=== PATIENT | female | born 1935 | race Caucasian/White ===

== ENCOUNTER 2018-03-13 08:47 | Observation (INO) | payer MEDICARE, OTHER ==
[2018-03-13 10:20] LABS: ADD MAN DIFF? NO
[2018-03-13 10:25] LABS: BASOPHILS % 0.8 % (0.0-2.0); EOSINOPHILS % 0.8 % (0.0-7.0); HEMATOCRIT 37.7 % (37.0-47.0); LYMPHOCYTES # 1.2 10^3/ul (0.8-2.9); LYMPHOCYTES % 22.1 % (15.0-51.0); MEAN CORPUSCULAR HEMOGLOBIN 32.2 pg (29.0-33.0); MEAN CORPUSCULAR HGB CONC 34.5 g/dl (32.0-37.0); MEAN CORPUSCULAR VOLUME 93.3 fl (82.0-101.0); MEAN PLATELET VOLUME 11.8 fl (7.4-10.4); MONOCYTE # 0.3 10^3/ul (0.3-0.9); MONOCYTES % 5.7 % (0.0-11.0); NEUTROPHIL # 3.6 10^3/ul (1.6-7.5); NEUTROPHILS % 67.6 % (39.0-77.0); PLATELET COUNT 124 10^3/UL (140-415); RED BLOOD COUNT 4.04 10^6/ul (4.20-5.40); RED CELL DISTRIBUTION WIDTH 13.2 % (11.5-14.5)
[2018-03-13 10:25] LABS: WHITE BLOOD COUNT 5.3 10^3/ul (4.8-10.8)
[2018-03-13] MEDS: ASPIRIN 325 MG TAB PO (10:42)
[2018-03-13 10:44] LABS: INR 0.95; PROTIME 12.8 Sec (11.9-14.9)
[2018-03-13 10:45] LABS: PARTIAL THROMBOPLASTIN TIME 29.3 Sec (25.0-35.0)
[2018-03-13 10:47] LABS: ALANINE AMINOTRANSFERASE 18 IU/L (13-69); ALBUMIN 4.2 g/dl (3.3-4.9); ALKALINE PHOSPHATASE 51 IU/L (42-121); ANION GAP 12 (8-16); ASPARTATE AMINO TRANSFERASE 23 IU/L (15-46); BILIRUBIN,INDIRECT 0.2 mg/dl (0-1.1); BILIRUBIN,TOTAL 0.2 mg/dl (0.2-1.3); BLOOD UREA NITROGEN 15 mg/dl (7-20); CALCIUM 8.4 mg/dl (8.4-10.2); CARBON DIOXIDE 24 mmol/L (21-31); CHLORIDE 108 mmol/L (97-110); CREATININE 0.65 mg/dl (0.44-1.00); GLUCOSE 144 mg/dl (70-220); POTASSIUM 4.2 mmol/L (3.5-5.1); SODIUM 140 mmol/L (135-144)
[2018-03-13] MEDS: NITROGLYCERIN 2% 1 GM OINT PKT TD (10:49)
[2018-03-13 10:58] LABS: TROPONIN-I < 0.010 ng/ml (0.000-0.120)
[2018-03-13] MEDS ORDERED: ACETAMINOPHEN 325 MG TAB PO ×2 (13:00→13:30)
[2018-03-13] MEDS ORDERED: ONDANSETRON 4 MG INJ IV ×2 (13:00→13:30)
[2018-03-13] MEDS ORDERED: NITROGLYCERIN (SL) 0.4 MG TAB SL (13:30)
[2018-03-13] MEDS ORDERED: DOCUSATE SODIUM 100 MG CAP PO (13:30)
[2018-03-13] MEDS ORDERED: MAGNESIUM HYDROXIDE 30ML CUP PO (13:30)
[2018-03-13] MEDS ORDERED: NACL 0.9% 3 ML SYG IV (13:30)
[2018-03-13 15:13] LABS: CREATINE KINASE 35 IU/L (23-200)
[2018-03-13 15:26] LABS: CK-MB 0.35 ng/ml (0.0-2.4); TROPONIN-I < 0.010 ng/ml (0.000-0.120)
[2018-03-13 19:22] LABS: CREATINE KINASE 33 IU/L (23-200)
[2018-03-13 19:35] LABS: CK-MB 0.33 ng/ml (0.0-2.4); TROPONIN-I < 0.010 ng/ml (0.000-0.120)
[2018-03-13] MEDS: ATORVASTATIN 10 MG TAB PO (21:24)
[2018-03-14] MEDS: PANTOPRAZOLE (EC) 40 MG TAB PO (05:07)
[2018-03-14] MEDS: LEVOTHYROXINE 75 MCG TAB PO (05:07)
[2018-03-14 07:38] LABS: ADD MAN DIFF? NO
[2018-03-14 07:50] LABS: WHITE BLOOD COUNT 6.2 10^3/ul (4.8-10.8)
[2018-03-14 07:50] LABS: BASOPHILS % 0.3 % (0.0-2.0); EOSINOPHILS # 0.1 10^3/ul (0.0-0.5); EOSINOPHILS % 1.5 % (0.0-7.0); HEMATOCRIT 35.4 % (37.0-47.0); HEMOGLOBIN 11.9 g/dl (12.0-16.0); LYMPHOCYTES # 1.4 10^3/ul (0.8-2.9); MEAN CORPUSCULAR HEMOGLOBIN 31.4 pg (29.0-33.0); MEAN CORPUSCULAR HGB CONC 33.6 g/dl (32.0-37.0); MEAN CORPUSCULAR VOLUME 93.4 fl (82.0-101.0); MEAN PLATELET VOLUME 11.9 fl (7.4-10.4); MONOCYTE # 0.4 10^3/ul (0.3-0.9); MONOCYTES % 6.8 % (0.0-11.0); NEUTROPHIL # 4.2 10^3/ul (1.6-7.5); NEUTROPHILS % 68.6 % (39.0-77.0); PLATELET COUNT 112 10^3/UL (140-415); RED BLOOD COUNT 3.79 10^6/ul (4.20-5.40); RED CELL DISTRIBUTION WIDTH 13.1 % (11.5-14.5)
[2018-03-14 08:05] LABS: CHOLESTEROL 142 mg/dl (100-200)
[2018-03-14 08:05] LABS: CHOL/HDL RATIO 3.9 RATIO; HDL CHOLESTEROL 36 mg/dl (33-92); LDL CHOLESTEROL,CALCULATED 72 mg/dl; TRIGLYCERIDES 168 mg/dl (0-149)
[2018-03-14 08:15] LABS: ALBUMIN 3.7 g/dl (3.3-4.9); ANION GAP 10 (8-16); BLOOD UREA NITROGEN 11 mg/dl (7-20); CALCIUM 8.2 mg/dl (8.4-10.2); CARBON DIOXIDE 25 mmol/L (21-31); CHLORIDE 108 mmol/L (97-110); CREATININE 0.61 mg/dl (0.44-1.00); GLUCOSE 128 mg/dl (70-220); MAGNESIUM 2.1 mg/dl (1.7-2.5); PHOSPHORUS 3.8 mg/dl (2.5-4.9); POTASSIUM 3.9 mmol/L (3.5-5.1); SODIUM 139 mmol/L (135-144)
[2018-03-14] MEDS: FUROSEMIDE 20 MG TAB PO (08:37)
[2018-03-14] MEDS: LOSARTAN 50 MG TAB PO (08:37)
[2018-03-14] MEDS: METOPROLOL (XL) 25 MG TAB PO (08:37)
[2018-03-14] MEDS: ASPIRIN (EC) 81 MG TAB PO (08:37)
[2018-03-14] MEDS ORDERED: PAROXETINE 10 MG TAB PO (09:00)
[2018-03-14] MEDS: ATORVASTATIN 10 MG TAB PO (20:18)
[2018-03-15] MEDS: LEVOTHYROXINE 75 MCG TAB PO (05:18)
[2018-03-15] MEDS: PANTOPRAZOLE (EC) 40 MG TAB PO (05:18)
[2018-03-15 07:44] LABS: ADD MAN DIFF? NO
[2018-03-15 07:53] LABS: BASOPHILS % 0.4 % (0.0-2.0); EOSINOPHILS # 0.1 10^3/ul (0.0-0.5); EOSINOPHILS % 1.9 % (0.0-7.0); HEMATOCRIT 36.3 % (37.0-47.0); HEMOGLOBIN 12.2 g/dl (12.0-16.0); LYMPHOCYTES # 1.3 10^3/ul (0.8-2.9); LYMPHOCYTES % 26.9 % (15.0-51.0); MEAN CORPUSCULAR HEMOGLOBIN 31.2 pg (29.0-33.0); MEAN CORPUSCULAR HGB CONC 33.6 g/dl (32.0-37.0); MEAN CORPUSCULAR VOLUME 92.8 fl (82.0-101.0); MEAN PLATELET VOLUME 11.8 fl (7.4-10.4); MONOCYTE # 0.5 10^3/ul (0.3-0.9); MONOCYTES % 9.8 % (0.0-11.0); NEUTROPHIL # 2.8 10^3/ul (1.6-7.5); NEUTROPHILS % 59.9 % (39.0-77.0); PLATELET COUNT 102 10^3/UL (140-415); RED BLOOD COUNT 3.91 10^6/ul (4.20-5.40); RED CELL DISTRIBUTION WIDTH 13.2 % (11.5-14.5)
[2018-03-15 07:53] LABS: WHITE BLOOD COUNT 4.7 10^3/ul (4.8-10.8)
[2018-03-15 07:58] LABS: POSITIVE DIFF @See below
[2018-03-15 08:25] LABS: ALBUMIN 3.7 g/dl (3.3-4.9); ANION GAP 14 (8-16); BLOOD UREA NITROGEN 13 mg/dl (7-20); CALCIUM 8.3 mg/dl (8.4-10.2); CARBON DIOXIDE 26 mmol/L (21-31); CHLORIDE 105 mmol/L (97-110); CREATININE 0.64 mg/dl (0.44-1.00); GLUCOSE 115 mg/dl (70-220); MAGNESIUM 2.2 mg/dl (1.7-2.5); PHOSPHORUS 4.3 mg/dl (2.5-4.9); POTASSIUM 3.8 mmol/L (3.5-5.1); SODIUM 141 mmol/L (135-144)
[2018-03-15] MEDS: ASPIRIN (EC) 81 MG TAB PO (08:39)
[2018-03-15] MEDS: METOPROLOL (XL) 25 MG TAB PO (08:40)
[2018-03-15] MEDS: FUROSEMIDE 20 MG TAB PO (08:40)
[2018-03-15] MEDS: LOSARTAN 50 MG TAB PO (08:41)
== END 2018-03-15 14:33 | disposition home or self-care (01) ==
LOC: E/R 08:47 → MS4 12:53
DX: R07.89 Other chest pain (principal); I11.0 Hypertensive heart disease with heart failure; I50.22 Chronic systolic (congestive) heart failure; E11.9 Type 2 diabetes mellitus without complications; I25.10 Atherosclerotic heart disease of native coronary artery without angina pectoris; E03.9 Hypothyroidism, unspecified; R25.2 Cramp and spasm; Z79.82 Long term (current) use of aspirin; Z95.0 Presence of cardiac pacemaker
CPT/HCPCS: 36415; 71045; 80053; 80061; 80069; 82550; 82553; 83735; 84443; 84484; 85025; 85610; 85730; 93005; 93306; 99285-25; G0378

== ENCOUNTER 2018-03-16 11:54 | Emergency (ER) | payer MEDICARE, OTHER ==
[2018-03-16] MEDS: MECLIZINE 12.5 MG TAB PO (12:28)
[2018-03-16 12:29] LABS: ADD MAN DIFF? NO
[2018-03-16 12:33] LABS: BASOPHILS % 0.8 % (0.0-2.0); EOSINOPHILS # 0.1 10^3/ul (0.0-0.5); EOSINOPHILS % 1.9 % (0.0-7.0); HEMATOCRIT 37.1 % (37.0-47.0); HEMOGLOBIN 12.8 g/dl (12.0-16.0); LYMPHOCYTES # 1.1 10^3/ul (0.8-2.9); LYMPHOCYTES % 21.7 % (15.0-51.0); MEAN CORPUSCULAR HEMOGLOBIN 31.9 pg (29.0-33.0); MEAN CORPUSCULAR HGB CONC 34.5 g/dl (32.0-37.0); MEAN CORPUSCULAR VOLUME 92.5 fl (82.0-101.0); MEAN PLATELET VOLUME 11.2 fl (7.4-10.4); MONOCYTE # 0.5 10^3/ul (0.3-0.9); MONOCYTES % 9.8 % (0.0-11.0); NEUTROPHIL # 3.4 10^3/ul (1.6-7.5); NEUTROPHILS % 64.8 % (39.0-77.0); PLATELET COUNT 130 10^3/UL (140-415); RED BLOOD COUNT 4.01 10^6/ul (4.20-5.40); RED CELL DISTRIBUTION WIDTH 13.2 % (11.5-14.5)
[2018-03-16 12:33] LABS: WHITE BLOOD COUNT 5.2 10^3/ul (4.8-10.8)
[2018-03-16 12:51] LABS: ANION GAP 16 (8-16); BLOOD UREA NITROGEN 13 mg/dl (7-20); CALCIUM 8.6 mg/dl (8.4-10.2); CARBON DIOXIDE 26 mmol/L (21-31); CHLORIDE 101 mmol/L (97-110); CREATININE 0.66 mg/dl (0.44-1.00); GLUCOSE 138 mg/dl (70-220); POTASSIUM 4.3 mmol/L (3.5-5.1); SODIUM 139 mmol/L (135-144)
[2018-03-16 13:02] LABS: TROPONIN-I < 0.010 ng/ml (0.000-0.120)
== END 2018-03-16 14:06 | disposition home or self-care (01) ==
LOC: E/R 11:54
DX: H81.10 Benign paroxysmal vertigo, unspecified ear (principal); R07.9 Chest pain, unspecified; R40.2142 Coma scale, eyes open, spontaneous, at arrival to emergency department; R40.2362 Coma scale, best motor response, obeys commands, at arrival to emergency department; R40.2252 Coma scale, best verbal response, oriented, at arrival to emergency department; Z79.82 Long term (current) use of aspirin; Z95.0 Presence of cardiac pacemaker
CPT/HCPCS: 36415; 71045; 80048; 84484; 85025; 93005; 99285-25

== ENCOUNTER 2018-11-08 19:08 | Emergency (ER) | payer SELFPAY, OTHER, MEDICARE | END 2018-11-08 22:38 | disposition left against medical advice (07) | LOC: E/R 22:38 | DX: Z53.21 Procedure and treatment not carried out due to patient leaving prior to being seen by health care provider (principal) | CPT/HCPCS: 93005 ==